=== PATIENT | male | born 1960 | race Caucasian/White ===

== ENCOUNTER → 2019-07-22 13:07 | Outpatient (CLI) | payer MEDICARE, SELFPAY | DX: Z23 Encounter for immunization (principal) | CPT/HCPCS: 90471; 90686 ==

== ENCOUNTER → 2020-06-19 14:44 | Outpatient (CLI) | payer OTHER, SELFPAY ==
[2020-06-19 14:58] LABS: Add Manual Diff / Slide Review NO; Basophils Absolute Auto 0 /uL (0-100); Basophils Percent Auto 0.9 % (0-2); Eosinophils Absolute Auto 100 /uL (0-450); Hematocrit 38.3 % (41-53); Hemoglobin 13.3 g/dL (13.5-17.5); Lymphocytes Absolute Auto 1700 /uL (1100-4500); Lymphocytes Percent Auto 31.6 % (25-40); Mean Corpuscular HGB Conc 34.7 % (30-36); Mean Corpuscular Volume 95.2 fL (80-100); Monocytes Absolute Auto 400 /uL (0-900); Neutrophils Absolute Auto 3100 /uL (1500-7000); Neutrophils Percent Auto 57.5 % (50-75); Platelet Count 241 X10^3/uL (150-400); Red Blood Cell Count 4.02 X10^6/uL (4.5-5.9); Red Cell Distribution Width 13.2 % (11.6-14.8); White Blood Cell Count 5.4 X10^3/uL (4.5-11.0)
[2020-06-19 15:10] LABS: Alanine Aminotransferase 32 IU/L (<50); Albumin 4.7 g/dL (3.5-5.0); Albumin Globulin Ratio 1.4 (1.0-2.8); Alkaline Phosphatase 50 U/L (38-126); Aspartate Aminotransferase 33 IU/L (17-59); BUN Creatinine Ratio 14.4 (6-22); Bilirubin Total 0.8 mg/dL (0.2-1.3); Blood Urea Nitrogen 21 mg/dL (9-20); Calcium 9.4 mg/dL (8.4-10.2); Carbon Dioxide 29 mmol/L (22-32); Chloride 104 mmol/L (98-107); Estimated Glomerular Filt Rate 49.3 mL/min (>60); Globulin 3.3 g/dL (1.7-4.1); Glucose 96 mg/dL (80-110); HEMOLYSIS < 15 (0-50); Lactate Dehydrogenase 522 U/L (313-618); Potassium 4.5 mmol/L (3.4-5.1); Sodium 141 mmol/L (137-145)
== END ==
PROVIDERS: PCP Family Medicine; Referring Provider Internal Medicine Hematology & Oncology; Visit Provider Internal Medicine Hematology & Oncology
DX: Z85.528 Personal history of other malignant neoplasm of kidney (principal)
CPT/HCPCS: 36415; 80053; 83615; 85025

== ENCOUNTER → 2020-06-20 10:48 | Outpatient (CLI) | payer OTHER, SELFPAY ==
--- NOTE | 2020-06-20 10:49 | DI.CT.S_ITS ---
PROCEDURE: CT SOFT TISSUE NECK W CON INDICATIONS: kidney cancer TECHNIQUE: After the administration of intravenous contrast, 3.0 mm axial sections acquired from the sella to the aortic arch. Additional oblique axial 3.0 mm sections acquired through the pharynx. 3 mm thick coronal and sagittal reformats were generated. For radiation dose reduction, the following was used: automated exposure control. COMPARISON: [facility], CT, CT CHEST ABD PEL W CON, 06/20/2020, 11:55. FINDINGS: Image quality: Excellent. Lymph nodes: No enlarged lymph nodes seen throughout the neck. Vessels: Visualized vasculature appears patent. Atherosclerotic calcification is noted. There is approximately 50% narrowing seen involving the right proximal internal carotid artery. Neck spaces: The oropharynx, nasopharynx, and pharynx demonstrate no mucosal lesions. The vocal cords, false vocal cords, pyriform sinuses, epiglottis, vallecula, and tongue base all appear normal. Extramucosal spaces appear unremarkable. Glands: The parotid and submandibular glands appear normal. Thyroid gland demonstrates no significant abnormality. Miscellaneous: Visualized brain and orbits appear normal. Lung apices appear clear. Superficial soft tissues appear normal. Bones: No suspicious bony lesions. Visualized sinuses and mastoids appear unremarkable. Degenerative changes are seen, which are most prominent at C6-C7, where there is moderate disc space narrowing. Milder degenerative changes are seen elsewhere. IMPRESSION: No enlarged lymph nodes or masses can be seen within the neck. Incidental note is made of: Approximately 50% narrowing involving the right proximal internal carotid artery. Focal C6-C7 degenerative change Dictated by: Toby Clark M.D. on 07/02/2020 at 16:42 Approved by: Toby Clark M.D. on 07/02/2020 at 16:44
--- NOTE | 2020-06-20 10:49 | DI.CT.S_ITS ---
PROCEDURE: CT CHEST ABD PEL W CON INDICATIONS: kidney cancer TECHNIQUE: After the administration of oral and intravenous contrast, 5 mm thick sections acquired from the lung apices to the symphysis. 5 mm coronal and sagittal reformats were performed, with additional 7 mm coronal MIP reformats through the lungs. For radiation dose reduction, the following was used: automated exposure control, adjustment of mA and/or kV according to patient size. COMPARISON: [facility], CT, CT SOFT TISSUE NECK W CON, 06/20/2020, 11:55. Outside Facility, RG, CT ABDOMEN/PELVIS WITH CONTRAST, 06/29/2016, 13:13. Outside Facility, RG, CT ABDOMEN/PELVIS WITH CONTRAST, 07/21/2018, 13:53. FINDINGS: Image quality: Excellent. CHEST: Lungs and pleura: No acute airspace opacities. No pleural effusions or pneumothorax. Central and peripheral airways appear patent and normal in caliber. Mediastinum: Heart size is normal. No pericardial effusion. No mediastinal or hilar adenopathy by size criteria. Thoracic aorta and central pulmonary arteries are normal in size. Esophagus is normal in caliber. No hiatal hernia. Chest wall: No axillary or supraclavicular adenopathy by size criteria. Thyroid gland appears normal . ABDOMEN: Solid organs: Liver is normal in size and enhancement. Gallbladder appears normal, partially contracted. Biliary system is non dilated. Pancreas enhances normally. Spleen is normal in size and enhancement. No adrenal nodules. The remaining left kidney demonstrates normal size and enhancement, without hydronephrosis. Peritoneum and bowel: Bowel loops demonstrate normal wall thickness and caliber. No free fluid or air. Nodes and vessels: No retroperitoneal or mesenteric adenopathy by size criteria. Aorta and inferior vena cava are normal in size. Miscellaneous: No ventral hernias. PELVIS: Genitourinary: Bladder wall thickness is normal. Miscellaneous: No inguinal hernias or adenopathy. Bones: No suspicious bony lesions. No vertebral body compression fractures. IMPRESSION: Prior right nephrectomy, no evidence of recurrent disease in the resection bed and no metastatic disease is found. Dictated by: Abraham López M.D. on 07/03/2020 at 10:29 Approved by: Abraham López M.D. on 07/03/2020 at 10:33
== END ==
PROVIDERS: PCP Family Medicine; Referring Provider Family Medicine; Visit Provider Internal Medicine Hematology & Oncology
DX: C64.1 Malignant neoplasm of right kidney, except renal pelvis (principal); I65.21 Occlusion and stenosis of right carotid artery; M47.812 Spondylosis without myelopathy or radiculopathy, cervical region; Z90.5 Acquired absence of kidney
CPT/HCPCS: 70491; 71260; 74177; Q9967

== ENCOUNTER → 2020-07-31 | Outpatient (CLI) | payer OTHER, SELFPAY | PROVIDERS: PCP Family Medicine; Referring Provider Internal Medicine; Visit Provider Internal Medicine | DX: Z23 Encounter for immunization (principal) | CPT/HCPCS: 90471; 90686 ==

== ENCOUNTER → 2020-11-23 14:35 | Outpatient (CLI) | payer OTHER, SELFPAY ==
--- NOTE | 2020-11-23 14:37 | DI.RAD.S_ITS ---
PROCEDURE: XR KNEE RT 3V INDICATIONS: worsening right knee pain TECHNIQUE: 3 views of the knee were acquired. COMPARISON: None. FINDINGS: Bones: No fractures or dislocations. No suspicious bony lesions. Mild narrowing of the medial femorotibial joint and tricompartmental periarticular osteophyte formation. Soft tissues: Trace joint effusion. No suspicious soft tissue calcifications. IMPRESSION: Knee joint degeneration, most notably involving the medial femorotibial joint and trace knee joint effusion is present. Dictated by: Rico Brown Ray Interpreted: Saturnino Cedeno MD on 11/23/2020 at 15:39 Approved by: Saturnino Cedeno M.D. on 11/23/2020 at 16:12
== END ==
PROVIDERS: PCP Family Medicine; Referring Provider Family Medicine; Visit Provider Family Medicine
DX: M25.561 Pain in right knee (principal); M17.11 Unilateral primary osteoarthritis, right knee; G89.29 Other chronic pain
CPT/HCPCS: 73562

== ENCOUNTER → 2021-01-30 09:09 | Outpatient (CLI) | payer OTHER, SELFPAY ==
[2021-01-30 09:42] LABS: Add Manual Diff / Slide Review NO; Basophils Absolute Auto 0 /uL (0-100); Basophils Percent Auto 0.7 % (0-2); Eosinophils Absolute Auto 200 /uL (0-450); Hemoglobin 12.9 g/dL (13.5-17.5); Lymphocytes Absolute Auto 1400 /uL (1100-4500); Lymphocytes Percent Auto 33.8 % (25-40); Mean Corpuscular HGB Conc 34.9 % (30-36); Mean Corpuscular Hemoglobin 32.7 PG (26-34); Mean Corpuscular Volume 93.9 fL (80-100); Monocytes Absolute Auto 400 /uL (0-900); Monocytes Percent Auto 9.8 % (3-14); Neutrophils Absolute Auto 2200 /uL (1500-7000); Neutrophils Percent Auto 51.7 % (50-75); Platelet Count 221 X10^3/uL (150-400); Red Blood Cell Count 3.94 X10^6/uL (4.5-5.9); White Blood Cell Count 4.3 X10^3/uL (4.5-11.0)
[2021-01-30 09:49] LABS: Hemoglobin A1C% w Est Avg Glu 5.6 % (4.0-6.0)
[2021-01-30 10:05] LABS: BUN Creatinine Ratio 17.2 (6-22); Blood Urea Nitrogen 22 mg/dL (9-20); Calcium 9.6 mg/dL (8.4-10.2); Carbon Dioxide 23 mmol/L (22-32); Chloride 107 mmol/L (98-107); Estimated Glomerular Filt Rate 57.1 mL/min (>60); Glucose 111 mg/dL (80-110); HEMOLYSIS < 15 (0-50); Potassium 4.6 mmol/L (3.4-5.1); Sodium 139 mmol/L (137-145)
== END ==
PROVIDERS: PCP Family Medicine; Referring Provider Orthopaedic Surgery; Visit Provider Orthopaedic Surgery
DX: Z01.818 Encounter for other preprocedural examination (principal); R73.9 Hyperglycemia, unspecified; Z01.812 Encounter for preprocedural laboratory examination
CPT/HCPCS: 36415; 80048; 83036; 85025; 93005

== ENCOUNTER → 2021-02-16 10:12 | Outpatient (CLI) | payer OTHER, SELFPAY ==
[2021-02-16 11:57] LABS: COVID19 -Nasal RAPID Negative (Negative)
== END ==
PROVIDERS: PCP Family Medicine; Visit Provider Physician Assistant
DX: Z20.822 Contact with and (suspected) exposure to COVID-19 (principal); Z01.812 Encounter for preprocedural laboratory examination
CPT/HCPCS: 87635

== ENCOUNTER 2021-02-18 06:07 | Day surgery (SDC) | payer OTHER, SELFPAY ==
[2021-02-18] VITALS (8 sets, daily range): BP systolic 112–156; BP diastolic 76–97; PULSE 68–82; RESP 12–19; TEMP 36.4–36.8; O2SAT 92–98; BMI 29.8
--- NOTE | 2021-02-18 07:00 | DI.RAD.S_ITS ---
PROCEDURE: XR KNEE RT 1TO2V INDICATIONS: post operative right knee TECHNIQUE: 2 views of the knee were acquired. COMPARISON: [facility], , XR KNEE RT 3V, 11/23/2020, 14:37. FINDINGS: Bones: No fractures or dislocations. No suspicious bony lesions. Status post medial compartment arthroplasty, new since the prior examination. Soft tissues: No joint effusion. No suspicious soft tissue calcifications. IMPRESSION: Expected appearance following medial compartment arthroplasty. Dictated by: Sal Santos M.D. on 02/18/2021 at 9:45 Approved by: Sal Santos M.D. on 02/18/2021 at 9:46
--- NOTE | 2021-02-18 07:30 | PM.PREOP ---
Pre-operative Note COVID-19 COVID-19 status: Negative Result date/Date tested (Pos, Neg/Pending): 02/16/21 Interval Note History & Physical reviewed/Exam performed by Physician: Yes Changes to H&P: No
[2021-02-18] MEDS: ACETAMINOPHEN 325 MG TABLET 975 MG PO (07:32)
[2021-02-18] MEDS: LACTATED RINGERS 1,000 ML 42 ML IV (07:33)
[2021-02-18] MEDS: PREGABALIN 75 MG CAPSULE PO (07:33)
[2021-02-18] MEDS: CELECOXIB 200 MG CAPSULE PO (07:33)
[2021-02-18] MEDS: CEFAZOLIN 1 GM VIAL 2 GM IV (08:05)
[2021-02-18] MEDS: TRANEXAMIC ACID 2,000 MG in SODIUM CHLORIDE 0.9% 100 ML 200 ML IV (08:11)
--- NOTE | 2021-02-18 08:16 | SUR.OPER ---
Supine on padded OR bed, head on pillow, arms secured on padded arm boards at <90 degrees abduction, legs uncrossed, safety belt at thigh, tape over blanket over Left lower leg. Right leg sterile draped and in control of the Surgeon. Demayo positioner in use.
[2021-02-18] MEDS: MORPHINE 4 MG/ML INJ INJ (08:21)
[2021-02-18] MEDS: BUPIVACAINE 0.25% W/ EPI 30 ML VIAL 60 ML INJ (08:21)
[2021-02-18] MEDS: BUPIVACAINE LIPOSOME 266 MG/20 ML VIAL INJ (08:53)
--- NOTE | 2021-02-18 09:24 | P.OP_ITS ---
Operative Date/Time/Diagnoses Date of procedure: 02/18/21 Time of procedure: 09:24 Pre-op diagnosis: Right knee osteoarthritis Post-op diagnosis: same Procedure & Clinicians Procedure: Right knee medial unicompartmental arthroplasty Same procedure as scheduled: Yes Indications: The patient has had progressively worsening right knee pain with radiographic changes consistent with arthritis. Non-operative management has failed and the patient has requested partial knee replacement. The risks, benefits and alternatives to surgery were discussed with the patient prior to proceeding. Risks discussed included, but were not limited to, failure to relieve pain, stiffness, infection, nerve damage, deep venous thrombosis, pulmonary embolism, stroke, coma, heart attack, permanent paralysis and , as well as the potential need for eventual revision of the prosthetic. Surgeon: Shady Marinelli Pattern Marking Supervisor: Alexandru Sims Click Yes if Unassisted: No Anesthesia Type: General, Spinal and Local Operative Notes Findings: Bone on bone arthritic change the medial compartment with moderate osteophyte formation. Closure Type: primary Specimen(s): none sent Prosthetic devices, grafts, tissues, transplants, or devices: Implants used in this procedure were manufactured by the [employer] and included the Journey II UKA system with a size 5 right medial Oxinium femoral component, a size 7 right medial tibial base plate and a 9 mm cross-linked polyethylene tibial insert. Applied: implant(s) Estimated Blood Loss (mL): 50 Blood products transfused: none Tourniquet time (min): 48 Procedure in detail: The patient was seen in the pre-operative area, where the patient identified the right knee as the operative site and this was marked with my initials. The patient received pre-operative antibiotics, and was taken to the operating room and placed on the operative table in the supine position. After satisfactory anesthesia, a registered phlebotomist part time out was performed. The right leg was encircled with a tourniquet about the proximal thigh, and the leg was prepared from the toes to the tourniquet with ChloroPrep in the usual fashion and draped through sterile drapes. The leg was elevated and exsanguinated with Eschmark bandage and the tourniquet inflated to 250 mmHg pressure. The knee was approached through an approximately 12 cm incision starting at the superior medial pole of the patella and extending to the tibial tubercle. This was carried into the knee through a mid vastus incision. The anterior osteophytes and soft tissues were removed. The extramedullary tibial cutting guide was applied and the proximal tibial cut made using the 4 mm setting. Gap balancing was checked and a 10 mm spacer worked for both flexion and extension. The distal cut was made using the tibial spacer block in extension. The distal femoral guide was applied and the cuts made for the posterior and chamfer cuts. The posterior horn of the meniscus removed and the posterior capsule was injected with part of a mixture of 60 ml 0.25% Marcaine mixed with 20 ml Exparel and 4 mg of morphine for post-operative pain control. The remainder of this mixture was injected into the capsule and subcutaneous tissues during cement curing. The tibia was prepared with the lug holes drilled through the trial. Trial tibial and femoral components were then placed and the femoral lug holes drilled through the femoral trial. Range of motion was 0-135 degrees, with good stability throughout the range with slightly more laxity in flexion than ex tension. The trials were then removed, and the bone was prepared with pulsatile lavage, and dried with a sponge. Cement was applied and the final prosthetics placed. Excess cement was removed during and after cement curing. After confirming there was no extruded cement posteriorly, the final tibial insert was placed. The knee was copiously irrigated and the tourniquet deflated. Hemostasis was obtained. The capsule was closed with interrupted # 2 polyester suture, with 0 Vicryl for the muscular extension of the mid vastus incision. The subcutaneous layer was closed with 3-0 Vicryl, and the skin with a running 3-0 V-Lock suture and Dermabond. An Aquacel Ag dressing was applied and the patient was taken to recovery having tolerated the procedure well. Complications: none Post-operative Condition: stable Disposition: PACU Plan for aftercare: The patient will be discharged home today. He will follow a standard postoperative physical therapy program for unicompartmental arthroplasty.
--- NOTE | 2021-02-18 11:03 | SUR.PHASEII ---
Attempt to see how patient does upon standing. Ability with strength and lifting of legs to bilateral lower extremities. Still with some weakness to right lower extremity. Will reassess shortly.
[2021-02-18] MEDS: hydrOXYzine pamoate 25 MG CAPSULE PO (12:19)
[2021-02-18] MEDS: OXYCODONE IR 5 MG TABLET PO (12:19)
--- NOTE | 2021-02-18 12:21 | SUR.PHASEII ---
Addendum entered by Mile Bettencourt R.N. 02/18/21 12:23: Pain level 3/10, pt accepted offer of medication as he will be traveling to [place]. Stood with walker and two-person assist. Stable on feet with gentle pressure on RLE. Pt read his instructions, has no questions. He was given a meal approx 1 1/2 hours ago. To car by boxing and pressing supervisor Original Note: Patient was followed by Taylor Ryder RN from PACU. A&O throughout PACU stay, frequently checked with the patient who has been comfortable throughout. 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
== END 2021-02-18 12:26 | disposition home or self-care (01) ==
PROVIDERS: PCP Family Medicine; Referring Provider Family Medicine; Visit Provider Orthopaedic Surgery
PROC: (CPT 27446; principal; 2021-02-18 07:45)
DX: M17.11 Unilateral primary osteoarthritis, right knee (principal); E66.9 Obesity, unspecified; M25.761 Osteophyte, right knee
CPT/HCPCS: 27447; 73560; C1776; C9290; J0690; J1100; J2250; J2270; J2405; J2704

== ENCOUNTER → 2021-07-18 08:33 | Outpatient (CLI) | payer OTHER, SELFPAY ==
--- NOTE | 2021-07-18 08:35 | DI.CT.S_ITS ---
PROCEDURE: CT CHEST ABD PEL W CON INDICATIONS: Follow-up kidney cancer metastatic to nodes and psoas TECHNIQUE: After the administration of oral and intravenous contrast, axial sections acquired from the supraclavicular neck to the pubic symphysis. Coronal and sagittal reformats were performed. For radiation dose reduction, the following was used: automated exposure control, adjustment of mA and/or kV according to patient size. COMPARISON: [facility], CT, CT CHEST ABD PEL W CON, 06/20/2020, 11:55. FINDINGS: Image quality: Excellent. CHEST: Lower Neck: No enlarged lymph nodes. Thyroid: Grossly unremarkable Axillae: No enlarged lymph nodes. Chest Wall: Unremarkable. Lungs and Airways: No consolidation or suspicious nodules. Scarring within the left lung base anteriorly. Pleura: No pneumothorax or pleural effusions. Heart: Heart size is normal. No pericardial effusion. Mild calcification of the coronary vasculature. Thoracic Vessels: The aorta and pulmonary arteries demonstrate normal size. Mediastinum and Jeana: No enlarged lymph nodes. Esophagus: No wall thickening. No hiatal hernia. ABDOMEN: Liver: Unremarkable. Gallbladder: High density material within its lumen. No evidence of gallbladder wall thickening. Biliary ducts: Unremarkable. Pancreas: Unremarkable. Spleen: Unremarkable. Adrenal Glands: Unremarkable. Kidneys and Ureters: Right kidney surgically absent. Left kidney grossly unremarkable. Stomach and Bowel: Stomach, small bowel loops, and colon are unremarkable. Appendix not seen. No evidence of appendicitis. Peritoneum: No abnormal intraperitoneal fluid. No free air. Ventral Wall: No hernia. Abdominal Nodes: No retroperitoneal or mesenteric adenopathy by size criteria. Vessels: Aorta and inferior vena cava are normal in size. PELVIS: Pelvic Organs: Unremarkable. Bladder: Unremarkable. Pelvic Nodes: No enlarged lymph nodes. Miscellaneous: No inguinal hernias are seen. Bones: Unremarkable. IMPRESSION: 1. Postsurgical sequelae. 2. No evidence of malignancy. Dictated by: Sal Santos M.D. on 07/18/2021 at 10:23 Approved by: Sal Santos M.D. on 07/18/2021 at 10:26
== END ==
PROVIDERS: PCP Family Medicine; Referring Provider Internal Medicine; Visit Provider Internal Medicine
DX: Z85.528 Personal history of other malignant neoplasm of kidney (principal)
CPT/HCPCS: 71260; 74177

== ENCOUNTER → 2021-09-24 11:00 | Outpatient (CLI) | payer OTHER, SELFPAY | PROVIDERS: PCP Family Medicine; Referring Provider Internal Medicine; Visit Provider Internal Medicine | DX: Z23 Encounter for immunization (principal) | CPT/HCPCS: 90471; 90686 ==

== ENCOUNTER → 2022-08-22 15:20 | Outpatient (CLI) | payer SELFPAY | PROVIDERS: PCP Family Medicine; Referring Provider Internal Medicine; Visit Provider Internal Medicine | DX: Z23 Encounter for immunization (principal) | CPT/HCPCS: 90471; 90686 ==

== ENCOUNTER → 2023-08-19 08:01 | Outpatient (CLI) | payer OTHER, SELFPAY | PROVIDERS: PCP Family Medicine; Referring Provider Family Medicine; Visit Provider Family Medicine | DX: Z23 Encounter for immunization (principal) | CPT/HCPCS: 90471; 90686 ==

== ENCOUNTER 2024-03-28 17:39 | Inpatient (IN) | payer OTHER, SELFPAY ==
[2024-03-28] VITALS (14 sets, daily range): BP systolic 132–155; BP diastolic 73–96; PULSE 66–87; RESP 16; TEMP 36.4–36.8; O2SAT 96–100; BMI 27.1
[2024-03-28] MEDS: ONDANSETRON 4 MG/2 ML INJ IV ×2 (18:00→20:28)
--- NOTE | 2024-03-28 18:02 | EKG_ITS ---
[place] [address] [address] [place] [id number] Test Date: 2024-03-28 Pat Name: Chente Guzman Department: [facility] Room: Gender: Male Post Doctoral Researcher: LOYD : 1960 Requested By: Order Number: [id number] Reading MD: Zay Martinez Measurements Intervals [place] Rate: 70 P: 79 IN: 188 QRS: 31 QRSD: 90 T: 58 QT: 388 QTc: 419 Interpretive Statements Normal sinus rhythm Electronically Signed On 03-30-2024 19:42:01 PDT by Zay Martinez
[2024-03-28 18:05] LABS: Add Manual Diff / Slide Review NO; Basophils Absolute Auto 100 /uL (0-100); Basophils Percent Auto 1.1 % (0-2); Eosinophils Absolute Auto 100 /uL (0-450); Eosinophils Percent Auto 2.2 % (2-4); Hematocrit 42.3 % (41-53); Hemoglobin 14.9 g/dL (13.5-17.5); Lymphocytes Absolute Auto 1500 /uL (1100-4500); Lymphocytes Percent Auto 29.9 % (25-40); Mean Corpuscular HGB Conc 35.1 % (30-36); Mean Corpuscular Hemoglobin 33.8 PG (26-34); Mean Corpuscular Volume 96.1 fL (80-100); Monocytes Absolute Auto 500 /uL (0-900); Monocytes Percent Auto 10.9 % (3-14); Neutrophils Absolute Auto 2700 /uL (1500-7000); Neutrophils Percent Auto 55.9 % (50-75); Platelet Count 242 X10^3/uL (150-400); Red Cell Distribution Width 13.2 % (11.6-14.8); White Blood Cell Count 4.9 X10^3/uL (4.5-11.0)
[2024-03-28 18:18] LABS: Alanine Aminotransferase 25 IU/L (<50); Albumin Globulin Ratio 1.4 (1.0-2.8); Alkaline Phosphatase 54 U/L (38-126); Aspartate Aminotransferase 28 IU/L (17-59); BUN Creatinine Ratio 12.3 (6-22); Bilirubin Total 1.7 mg/dL (0.2-1.3); Blood Urea Nitrogen 16 mg/dL (9-20); Calcium 9.4 mg/dL (8.4-10.2); Carbon Dioxide 23 mmol/L (22-32); Chloride 101 mmol/L (98-107); Estimated Glomerular Filt Rate > 60 mL/min (>60); Globulin 3.6 g/dL (1.7-4.1); Glucose 132 mg/dL (80-110); HEMOLYSIS < 15 (0-50); Lipase 111 U/L (23-300); Potassium 4.3 mmol/L (3.4-5.1); Sodium 133 mmol/L (137-145); Total Protein 8.6 g/dL (6.3-8.2)
--- NOTE | 2024-03-28 19:11 | DI.CT.S_ITS ---
PROCEDURE: CT ABDOMEN PELVIS W CON INDICATIONS: rule out bowel obstruction, WITH PO CONTRAST please TECHNIQUE: After the administration of intravenous and oral contrast, axial sections acquired from the lung bases to the pubic symphysis. Coronal and sagittal reformats were performed. For radiation dose reduction, the following was used: automated exposure control, adjustment of mA and/or kV according to patient size. COMPARISON: [facility], CT, CT CHEST ABD PEL W CON, 07/18/2021, 8:57. FINDINGS: Image quality: Diagnostic. Lower Chest: No significant findings. ABDOMEN: Liver: No solid mass. Gallbladder: No radiopaque gallstones or gallbladder wall thickening. Biliary ducts: No biliary dilation. Pancreas: No ductal dilation. Spleen: Size is within normal limits. Adrenal Glands: No adrenal nodules. Kidneys and Ureters: Right kidney is surgically absent. No left-sided hydronephrosis. No solid mass. No complex renal cystic lesion which requires follow up. Stomach and Bowel: Markedly distended stomach lumen with suggestion of distal gastric wall thickening and narrowing of the pylorus. Fluid and contrast distended proximal small bowel loops are also noted in upper abdomen with zone of transition seen in mid abdomen slightly to the right of midline and slight swirling of the mesenteric fat best seen on series 2, image 65 and series 4, image 25 concerning for internal hernia and high-grade obstruction at this level. More distal small bowel loops are decompressed. No small bowel or colon wall thickening. No abscess collection. Peritoneum: No abnormal intraperitoneal fluid. No free air. Ventral Wall: No significant ventral hernia. Abdominal Nodes: No retroperitoneal or mesenteric adenopathy by size criteria. Vessels: Aorta and inferior vena cava are normal in size. PELVIS: Pelvic Organs: Mildly enlarged prostate gland with mass effect on floor of urinary bladder is seen. Bladder: No bladder wall thickening, accounting for underdistention. Pelvic Nodes: No enlarged lymph nodes. Miscellaneous: No inguinal hernias are seen. Ill-defined calcifications within right psoas muscle unchanged from prior study and likely represent post treatment changes. Bones: No aggressive osseous abnormality. IMPRESSION: 1. Finding is suggestive of high-grade proximal to mid small bowel obstruction with zone of transition in mid abdomen as described above and suggestion of possible internal hernia at this level. 2. There is also distension of gastric lumen with suggestion of pyloric wall thickening and narrowing of the lumen, suggest GI correlation. 3. There is no abscess collection. No free fluid or free air. No other area of abnormal bowel wall thickening. 4. Prior right nephrectomy. No left-sided hydronephrosis or suspicious renal lesion. 5. Likely postsurgical changes in right psoas muscle. Dictated by: Prakash Huber M.D. on 03/28/2024 at 20:58 Approved by: Prakash Huber M.D. on 03/28/2024 at 21:05
--- NOTE | 2024-03-28 19:13 | ED.ABDPAIN ---
HPI - Abdominal Pain General Chief Complaint: Abdominal Pain Stated Complaint: abd pain Time Seen by Provider: 03/28/24 18:01 History of Present Illness HPI narrative: 63yoM presents for 4 days of nausea, vomiting, abdominal pain. Patient reports extensive intra-abdominal surgical history including radical nephrectomy for renal cell carcinoma, appendectomy, recurrent small-bowel obstructions. Patient states that he was normally able to make himself NPO at home and after several days the obstruction will resolve. Patient states that yesterday he felt much better and was able to pass flatus. He thought that he had improved, but this afternoon his abdominal pain returned and was even more painful. He passed a small bowel movement earlier this morning but has not passed flatus since. Related Data Home Medications Medication Instructions Recorded Confirmed No Known Home Medications 03/28/24 03/28/24 Allergies Allergy/AdvReac Type Severity Reaction Status Date / Time No Known Drug Allergies Allergy Verified 03/28/24 17:46 Patient History Medical History Chronic pain of right knee Erectile dysfunction Peyronie disease Chronic kidney disease (CKD) stage G3a/A1, moderately decreased glomerular filtration rate (GFR) between 45-59 mL/min/1.73 square meter and albuminuria creatinine ratio less than 30 mg/g Screening for thyroid disorder Screening for prostate cancer Screening for hyperlipidemia Screen for colon cancer Depression (~1995) Anxiety (~2003) Chronic back pain Chicken pox (~1963) History of renal cell carcinoma (~2003) Surgical History Anesthesia H/O prior ablation treatment (~2016) History of radiation exposure (~2015) 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) History of nephrectomy, right (~2003) Family History Father Cancer Mother Protein S deficiency Brother Cancer Brother Diabetes mellitus Sister Protein S deficiency Grandfather History of heart disease Grandmother Alzheimer's disease Grandfather Cancer Grandmother Cancer Social History household members: significant other Smoking Status: Former smoker alcohol intake: never substance use type: does not use Smoking Status: Former smoker alcohol intake frequency: 3 or more drinks per day Alcohol type: beer Substance Use Type: does not use Exam Initial Vital Signs Initial Vital Signs: Vital Signs Temperature 98.3 F 03/28/24 17:42 Pulse Rate 87 03/28/24 17:42 Respiratory Rate 16 03/28/24 17:42 Blood Pressure 132/93 H 03/28/24 17:42 Pulse Oximetry 100 03/28/24 17:42 Oxygen Delivery Method Room Air 03/28/24 17:42 Const: Awake, alert, no acute distress, nontoxic appearing Cardiac: regular rate, regular rhythm RESP: unlabored, clear bilaterally, no wheezing GI: Soft, distended, midepigastric tenderness to deep palpation, no rebound or guarding Skin: Warm, Dry, intact, no rashes Neuro: AO x3, CN II-XII grossly intact, moves all extremities Course Orders Ordered: Acetaminophen (Acetaminophen 325 Mg Tablet) 650 mg PO Q6H PRN PRN Reason: Fever/Mild Pain (1-3) Heparin Sodium (Porcine) (Heparin 5,000 Unit/Ml Vial) 5,000 unit SUBCUT BID [facility] Last Admin: 03/29/24 00:01 Dose: 5,000 unit Documented By: Hydromorphone HCl (Hydromorphone 0.5 Mg Inj) 0.5 mg IV Q2H PRN PRN Reason: Pain, Severe (7-10) Last Admin: 03/29/24 00:01 Dose: 0.5 mg Documented By: Dextrose/Sodium Chloride (Dextrose 5%-0.45% Ns) 1,000 mls @ 100 mls/hr IV CONT [facility] Last Admin: 03/28/24 23:11 Dose: 100 mls/hr Documented By: Ibuprofen (Ibuprofen 600 Mg Tablet) 600 mg PO Q6H PRN PRN Reason: Fever/Mild Pain (1-3) Naloxone HCl (Naloxone 0.4 Mg/Ml Vial) 0.2 mg IV Q2MIN PRN PRN Reason: Opiate Reversal Ondansetron HCl (Ondansetron 4 Mg/2 Ml Inj) 4 mg IV NOW PRN PRN Reason: Nausea And Vomiting Last Admin: 03/28/24 18:00 Dose: 4 mg Documented By: MELVIN Ondansetron HCl (Ondansetron 4 Mg Odt) 4 mg PO NOW PRN PRN Reason: Nausea And Vomiting Discontinued Medications Sodium Chloride (Normal Saline 0.9%) 1,000 mls @ 1,000 mls/hr IV BOLUS ONE Stop: 03/28/24 22:10 Last Infusion: 03/28/24 22:45 Dose: Infused Documented By: Admin: 03/28/24 21:25 Dose: 1,000 mls/hr Documented By: MADAY Midazolam HCl (Midazolam 2 Mg/2 Ml Vial) 3 mg IV NOW ONE Stop: 03/28/24 21:34 Last Admin: 03/28/24 21:47 Dose: 3 mg Documented By: MADAY Morphine Sulfate (Morphine 4 Mg/Ml Inj) 4 mg IV NOW ONE Stop: 03/28/24 20:30 Last Admin: 03/28/24 20:33 Dose: 4 mg Documented By: MADAY Ondansetron HCl (Ondansetron 4 Mg/2 Ml Inj) 4 mg IV NOW ONE Stop: 03/28/24 20:20 Last Admin: 03/28/24 20:28 Dose: 4 mg Documented By: MADAY Vital Signs Vital signs: Vital Signs - 8 hr 03/28/24 20:30 03/28/24 20:30 03/28/24 21:00 Pulse Rate 71 66 Blood Pressure 143/95 H Pulse Oximetry 99 03/28/24 21:30 03/28/24 21:54 03/28/24 21:54 Pulse Rate 67 70 Blood Pressure 155/86 H Pulse Oximetry 98 99 03/28/24 21:59 Pulse Rate 77 Blood Pressure Pulse Oximetry 96 MDM - Abdominal Pain Differential Diagnosis Differential diagnosis: Likely abdominal pain, acute appendicitis and calculus of kidney Lab Data 03/28/24 17:55 03/28/24 17:55 Labs: Lab Results 03/28/24 Range/Units 17:55 WBC 4.9 (4.5-11.0) X10^3/uL RBC 4.40 L (4.5-5.9) X10^6/uL Hgb 14.9 (13.5-17.5) g/dL Hct 42.3 (41-53) % MCV 96.1 (80-100) fL MCH 33.8 (26-34) PG MCHC 35.1 (30-36) % RDW 13.2 (11.6-14.8) % Plt Count 242 (150-400) X10^3/uL Neut % (Auto) 55.9 (50-75) % Lymph % (Auto) 29.9 (25-40) % [place] % (Auto) 10.9 (3-14) % Eos % (Auto) 2.2 (2-4) % Baso % (Auto) 1.1 (0-2) % Neut # (Auto) 2700 (6359-5926) /uL Lymph # (Auto) 1500 (9717-7224) /uL [place] # (Auto) 500 (0-900) /uL Eos # (Auto) 100 (0-450) /uL Baso # (Auto) 100 (0-100) /uL Sodium 133 L (137-145) mmol/L Potassium 4.3 (3.4-5.1) mmol/L Chloride 101 (98-107) mmol/L Carbon Dioxide 23 (22-32) mmol/L BUN 16 (9-20) mg/dL Creatinine 1.30 H (0.66-1.25) mg/dL Estimated GFR > 60 (>60) mL/min BUN/Creatinine Ratio 12.3 (6-22) Glucose 132 H (80-110) mg/dL Lactate 1.5 (0.7-2.1) mmol/L Calcium 9.4 (8.4-10.2) mg/dL Total Bilirubin 1.7 H (0.2-1.3) mg/dL AST 28 (17-59) IU/L ALT 25 (<50) IU/L Alkaline Phosphatase 54 (38-126) U/L Total Protein 8.6 H (6.3-8.2) g/dL Albumin 5.0 (3.5-5.0) g/dL Globulin 3.6 (1.7-4.1) g/dL Albumin/Globulin Ratio 1.4 (1.0-2.8) Lipase 111 (23-300) U/L Point of care testing: Urine Dip Bedside Urine Glucose Negative Bedside Urine Bilirubin - Negative Bedside Urine Ketone - Negative Urine Specific [place] 1.010 Bedside Urine Occult Blood - Negative Bedside Urine pH 6.0 Bedside Urine Protein - Negative Bedside Urine Urobilinogen - Negative Bedside Urine Nitrite - Negative Bedside Urine Leukocytes - Negative Esterase Imaging Data CT scan - abdomen/pelvis: Radiologist's Impression: PROCEDURE: CT ABDOMEN PELVIS W CON INDICATIONS: rule out bowel obstruction, WITH PO CONTRAST please TECHNIQUE: After the administration of intravenous and oral contrast, axial sections acquired from the lung bases to the pubic symphysis. Coronal and sagittal reformats were performed. For radiation dose reduction, the following was used: automated exposure control, adjustment of mA and/or kV according to patient size. COMPARISON: [facility], CT, CT CHEST ABD PEL W CON, 07/18/2021, 8:57. FINDINGS: Image quality: Diagnostic. Lower Chest: No significant findings. ABDOMEN: Liver: No solid mass. Gallbladder: No radiopaque gallstones or gallbladder wall thickening. Biliary ducts: No biliary dilation. Pancreas: No ductal dilation. Spleen: Size is within normal limits. Adrenal Glands: No adrenal nodules. Kidneys and Ureters: Right kidney is surgically absent. No left-sided hydronephrosis. No solid mass. No complex renal cystic lesion which requires follow up. Stomach and Bowel: Markedly distended stomach lumen with suggestion of distal gastric wall thickening and narrowing of the pylorus. Fluid and contrast distended proximal small bowel loops are also noted in upper abdomen with zone of transition seen in mid abdomen slightly to the right of midline and slight swirling of the mesenteric fat best seen on series 2, image 65 and series 4, image 25 concerning for internal hernia and high-grade obstruction at this level. More distal small bowel loops are decompressed. No small bowel or colon wall thickening. No abscess collection. Peritoneum: No abnormal intraperitoneal fluid. No free air. Ventral Wall: No significant ventral hernia. Abdominal Nodes: No retroperitoneal or mesenteric adenopathy by size criteria. Vessels: Aorta and inferior vena cava are normal in size. PELVIS: Pelvic Organs: Mildly enlarged prostate gland with mass effect on floor of urinary bladder is seen. Bladder: No bladder wall thickening, accounting for underdistention. Pelvic Nodes: No enlarged lymph nodes. Miscellaneous: No inguinal hernias are seen. Ill-defined calcifications within right psoas muscle unchanged from prior study and likely represent post treatment changes. Bones: No aggressive osseous abnormality. IMPRESSION: 1. Finding is suggestive of high-grade proximal to mid small bowel obstruction with zone of transition in mid abdomen as described above and suggestion of possible internal hernia at this level. 2. There is also distension of gastric lumen with suggestion of pyloric wall thickening and narrowing of the lumen, suggest GI correlation. 3. There is no abscess collection. No free fluid or free air. No other area of abnormal bowel wall thickening. 4. Prior right nephrectomy. No left-sided hydronephrosis or suspicious renal lesion. 5. Likely postsurgical changes in right psoas muscle. Dictated by: Prakash Huber M.D. on 03/28/2024 at 20:58 Approved by: Prakash Huber M.D. on 03/28/2024 at 21:05 [facility] Narrative Medical decision making narrative: Nontoxic patient presenting with persistent abdominal pain, history of multiple small-bowel obstructions. Attempted to perform bowel rest at home, however pain has returned and he was here today for evaluation. Abdomen is soft but generally tender in the upper quadrants to deep palpation, no peritoneal signs. Based on history laboratory work, CT of the abdomen and pelvis with IV and oral contrast ordered. Laboratory work shows WBC count 4.9, hemoglobin 14.9, platelets 242, sodium 133, potassium 4.3, creatinine 1.30, T bili 1.7, AST 28, ALT 25, alk phos 54, lactic acid 1.5. CT of the abdomen and pelvis shows high-grade small-bowel obstruction, no free air. There was possible question of internal hernia. Discussed case with Dr. Ferguson of General surgery, who reviewed images and stated that with soft abdomen and negative lactic acid unlikely to be internal hernia requiring emergent OR management. Based on patient's CT a NG tube was recommended, and patient consented. Return of gastric contents after NG tube placement. Patient admitted to General surgery service for further treatment of his condition. Discharge Plan Departure Patient Disposition: Admitted as Observation Clinical Impression: Complete small bowel obstruction Admit Date/Time: 03/28/24 22:00 Admit Provider: Lizbeth Ferguson
--- NOTE | 2024-03-28 19:37 | PC.NURSE ---
gave pt the contrast iodine to drink and notified CT 1937
[2024-03-28] MEDS: MORPHINE 4 MG/ML INJ IV (20:33)
[2024-03-28] MEDS: SODIUM CHLORIDE 0.9% 1,000 ML 1000 ML IV (21:25)
[2024-03-28] MEDS: MIDAZOLAM 2 MG/2 ML VIAL 3 MG IV (21:47)
[2024-03-28 22:05] LABS: Lactate (Lactic Acid) 1.5 mmol/L (0.7-2.1)
[2024-03-28] MEDS: DEXTROSE 5%-0.45% NS 1,000 ML 100 ML IV (23:11)
--- NOTE | 2024-03-28 23:26 | DI.RAD.S_ITS ---
PROCEDURE: XR CHEST 1V INDICATIONS: ng tube placement TECHNIQUE: One view of the chest was acquired. COMPARISON: None. FINDINGS: Surgical changes and devices: NG tube tip is below the left hemidiaphragm and is in the expected location of stomach lumen. Lungs and pleura: Lungs are clear. No pleural effusions or pneumothorax. Mediastinum: Mediastinal contours appear normal. Heart size is normal. Bones and chest wall: No suspicious bony lesions. Overlying soft tissues appear unremarkable. IMPRESSION: NG tube tip is in the stomach lumen. No focal infiltrate, pleural effusion or pneumothorax. No gross free air under the diaphragm. Dictated by: Prakash Huber M.D. on 03/28/2024 at 23:45 Approved by: Prakash Huber M.D. on 03/28/2024 at 23:47
[2024-03-29] MEDS: HEPARIN 5,000 UNIT/ML VIAL 5000 UNIT SUBCUT (00:01)
[2024-03-29] MEDS: HYDROMORPHONE 0.5 MG INJ IV (00:01)
[2024-03-29 03:09] VITALS: BP 120/77; PULSE 60; RESP 15; TEMP 36.4; O2SAT 97
[2024-03-29 06:42] LABS: Add Manual Diff / Slide Review NO; Basophils Absolute Auto 0 /uL (0-100); Basophils Percent Auto 0.4 % (0-2); Eosinophils Absolute Auto 100 /uL (0-450); Hematocrit 39.3 % (41-53); Hemoglobin 13.6 g/dL (13.5-17.5); Lymphocytes Absolute Auto 900 /uL (1100-4500); Lymphocytes Percent Auto 19.5 % (25-40); Mean Corpuscular HGB Conc 34.6 % (30-36); Mean Corpuscular Hemoglobin 33.4 PG (26-34); Mean Corpuscular Volume 96.8 fL (80-100); Monocytes Absolute Auto 600 /uL (0-900); Monocytes Percent Auto 13.5 % (3-14); Neutrophils Absolute Auto 2900 /uL (1500-7000); Neutrophils Percent Auto 63.6 % (50-75); Platelet Count 198 X10^3/uL (150-400); Red Blood Cell Count 4.06 X10^6/uL (4.5-5.9); Red Cell Distribution Width 13.1 % (11.6-14.8); White Blood Cell Count 4.5 X10^3/uL (4.5-11.0)
[2024-03-29 06:49] LABS: BUN Creatinine Ratio 10.2 (6-22); Blood Urea Nitrogen 12 mg/dL (9-20); Calcium 8.5 mg/dL (8.4-10.2); Carbon Dioxide 26 mmol/L (22-32); Chloride 105 mmol/L (98-107); Estimated Glomerular Filt Rate > 60 mL/min (>60); Glucose 122 mg/dL (80-110); HEMOLYSIS < 15 (0-50); Potassium 4.3 mmol/L (3.4-5.1); Sodium 135 mmol/L (137-145)
--- NOTE | 2024-03-29 06:57 | PC.NURSE ---
Pt has had >600 ml of brown drainage out of NGT, no pain and abdomen is softer this am.
[2024-03-29 08:00] VITALS: BP 116/82; PULSE 72; RESP 16; TEMP 36.1; O2SAT 97
--- NOTE | 2024-03-29 08:11 | DI.RAD.S_ITS ---
PROCEDURE: XR GASTROGRAFIN CHALLENGE COMPARISON: None. INDICATIONS: Bowel obstruction. FINDINGS: Intraluminal contrast is seen within the small and large bowel, and projecting over the rectum. IMPRESSION: Passage of contrast into the large bowel. Dictated by: Josh Mcfarland M.D. on 03/29/2024 at 14:35 Approved by: Josh Mcfarland M.D. on 03/29/2024 at 14:36
--- NOTE | 2024-03-29 08:11 | PM.HP.1 ---
History of Present Illness History of Present Illness Date Patient Seen: 03/29/24 Time Patient Seen: 14:22 Chief complaint: abd pain Narrative: 63-year-old male history of renal cell carcinoma status post right nephrectomy who presents to [facility] Emergency Department with abdominal pain. Several days of abdominal pain nausea vomiting. He has had previous small bowel obstructions and tried to manage things at home. On arrival to the emergency department afebrile, WBC 5, lactic acid 1.5. He received nasogastric tube placement with a large volume of bilious output. CT abdomen pelvis demonstrates small bowel obstruction without free air or free fluid. Since the time of his admission he has received a Gastrografin challenge performed via the NG tube and he has had several bowel movements now feels significantly better. [facility] Medical History Chronic pain of right knee Erectile dysfunction Peyronie disease Chronic kidney disease (CKD) stage G3a/A1, moderately decreased glomerular filtration rate (GFR) between 45-59 mL/min/1.73 square meter and albuminuria creatinine ratio less than 30 mg/g Screening for thyroid disorder Screening for prostate cancer Screening for hyperlipidemia Screen for colon cancer Depression (~1995) Anxiety (~2003) Chronic back pain Chicken pox (~1963) History of renal cell carcinoma (~2003) Surgical History Anesthesia H/O prior ablation treatment (~2016) History of radiation exposure (~2015) 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) History of nephrectomy, right (~2003) Family History Father Cancer Mother Protein S deficiency Brother Cancer Brother Diabetes mellitus Sister Protein S deficiency Grandfather History of heart disease Grandmother Alzheimer's disease Grandfather Cancer Grandmother Cancer Social History household members: significant other Smoking Status: Former smoker alcohol intake: never substance use type: does not use Meds Home Medications and Allergies Home Medications Medication Instructions Recorded Confirmed Type No Known Home Medications 03/28/24 03/28/24 History Allergies Allergy/AdvReac Type Severity Reaction Status Date / Time No Known Drug Allergies Allergy Verified 03/28/24 17:46 Exam Vital Signs (past 8 hours): - 03/29/24 03:09 Temperature 97.6 F Pulse Rate 60 Respiratory Rate 15 Blood Pressure 120/77 Pulse Oximetry 97 Oxygen Delivery Method Room Air Narrative Exam Narrative: GENERAL: A well nourished, well developed adult man, resting comfortably, in no acute distress. HEENT: Normocephalic, atraumatic. No scleral icterus CHEST: Rising symmetrically. No audible wheezes CARDIOVASCULAR: Warm and well perfused. Regular rate ABDOMEN: Soft, minimally distended. Compressible. EXTREMITIES: Normal tone and without edema. NEUROLOGIC: Moving all extremities spontaneously. No gross motor deficits. Objective Labs 03/29/24 05:40 03/29/24 05:40 Labs: Laboratory Results - last 24 hr 03/28/24 03/29/24 17:55 05:40 WBC 4.9 4.5 RBC 4.40 L 4.06 L Hgb 14.9 13.6 Hct 42.3 39.3 L MCV 96.1 96.8 MCH 33.8 33.4 MCHC 35.1 34.6 RDW 13.2 13.1 Plt Count 242 198 Neut % (Auto) 55.9 63.6 Lymph % (Auto) 29.9 19.5 L [place] % (Auto) 10.9 13.5 Eos % (Auto) 2.2 3.0 Baso % (Auto) 1.1 0.4 Neut # (Auto) 2700 2900 Lymph # (Auto) 1500 900 L [place] # (Auto) 500 600 Eos # (Auto) 100 100 Baso # (Auto) 100 0 Sodium 133 L 135 L Potassium 4.3 4.3 Chloride 101 105 Carbon Dioxide 23 26 BUN 16 12 Creatinine 1.30 H 1.18 Estimated GFR > 60 > 60 BUN/Creatinine Ratio 12.3 10.2 Glucose 132 H 122 H Lactate 1.5 Calcium 9.4 8.5 Total Bilirubin 1.7 H AST 28 ALT 25 Alkaline Phosphatase 54 Total Protein 8.6 H Albumin 5.0 Globulin 3.6 Albumin/Globulin Ratio 1.4 Lipase 111 Assessment & Plan Assessment and plan (1) Complete small bowel obstruction: Status: Acute Assessment & Plan narrative: 63-year-old man history of prior abdominal surgery who is admitted for management of a small-bowel obstruction. Bowel obstruction has resolved with nasogastric tube and Gastrografin challenge. -remove nasogastric tube -start diet advanced as tolerated -may discharge home if tolerant of diet
[2024-03-29] MEDS: DEXTROSE 5%-0.45% NS 1,000 ML 100 ML IV (08:50)
[2024-03-29 12:00] VITALS: BP 147/89; PULSE 70; RESP 16; TEMP 36.2; O2SAT 99
--- NOTE | 2024-03-29 14:24 | CM.DANOTE ---
Initial DCP Assessment Visit Note Reviewed EMR and team rounds for status updates. Met with pt at bedside to introduce self and role, pt found to be walking around his room, stating that he was feeling much better and was wanting to d/c home. Pt lives independently with his significant other [place] his [place]. He drove his own car to the ED, and feels well enough to drive himself back to his boat. No DCP needs are identified for assistance at this time. Payor: [facility] PCP: Dr. Claros Pt is a 63 year-old M who presented to the ED last evening with c/o 4-days nausea and vomiting, has a hx of recurrent bowel obstructions. CT abd/pelvis showed a small bowel obstruction and possible internal hernia. NG tube was placed after consulting w/Surgery-Dr. Ferguson, with a plan for possible surgical intervention (today). Pt had tried doing bowel rest at home, however the pain continued to worsen with conservative efforts. Today, he was found to be non-symptomatic after bowel rest, pain meds overnight, and is ready for home d/c. Discharge Planning/Care Management CM Discharge Assessment Start: 03/29/24 14:22 Freq: Status: Active Protocol: Document 03/29/24 14:22 DPL (Rec: 03/29/24 14:23 DPL [id number]) Discharge Planning Assessment Assigned Applications Sales Representative NICANOR Salmon Advance Directives? Yes Advance Directives on File No History Provided By Patient,Significant Other Has Patient been admitted in last 30 No days? Prior Living Arrangements Other Comment Boat Household Members significant other Type of transporation used prior to Drives own vehicle admit Independent with ADL's Yes Is patient alert and oriented? Yes Comment N/A Caregiver for Another No Comment No identified home d/c needs identified at this time. Barriers to Discharge No Discharge Plan Home Whiteboard Updated in Patient Room with Yes name and ext. # of Applications Sales Representative Review Status In Process Please Provide Date Initial DC 03/29/24 Assessment Was Performed
--- NOTE | 2024-03-29 15:01 | PC.NURSE ---
IV removed. Discussed worsening symptoms, follow up, and when to come back to ER. No further questions. RN walked patient to car.
== END 2024-03-29 14:55 | disposition home or self-care (01) | DRG 390 ==
LOC: ED 19:49 → AC 22:49
PROVIDERS: Emergency Medicine; Admitting Provider Surgery; Emergency Provider Emergency Medicine; PCP Family Medicine; Referring Provider Emergency Medicine; Visit Provider Surgery
DX: K56.601 Complete intestinal obstruction, unspecified as to cause (principal); Z90.5 Acquired absence of kidney; Z87.891 Personal history of nicotine dependence
CPT/HCPCS: 36415; 71045; 74018; 74177; 80048; 80053; 81003; 83605; 83690; 85025; 93005; 96374; 96375; 96376; 99233; 99284; 99285; J1170; J1644; J2250; J2270; J2405; Q9967